=== PATIENT | female | born 1995 | race Caucasian/White ===

== ENCOUNTER 2019-01-22 19:13 | Emergency (ER) | payer OTHER ==
[~2019-01-22] VITALS: Ht 165.1 cm; Wt 58.5 kg
[2019-01-22 19:23] VITALS: Ht 165.1 cm; Wt 58.5 kg
[2019-01-22 20:46] VITALS: BP 117/52
== END 2019-01-22 20:46 | disposition home or self-care (01) ==
LOC: ED 19:13
DX: J45.909 Unspecified asthma, uncomplicated (principal)